=== PATIENT | male | born 1985 | race Caucasian/White ===

== ENCOUNTER 2022-03-16 13:06 | Emergency (ER) | payer OTHER, SELFPAY ==
--- NOTE | 2022-03-16 13:08 | ECG_ITS ---
Test Reason : AFIB Blood Pressure : / mmHG Vent. Rate : 087 BPM Atrial Rate : 087 BPM P-R Int : 152 ms QRS Dur : 078 ms QT Int : 362 ms P-R-T Axes : 025 019 009 degrees QTc Int : 435 ms Normal sinus rhythm Normal ECG When compared with ECG of 03-JUN-2019 13:03, Sinus rhythm has replaced Atrial fibrillation Referred By: Generic ED Physician Electronically Signed By:TREY GARCIA MD
== END 2022-03-16 14:19 | disposition left against medical advice (07) ==
PROVIDERS: Emergency Provider Emergency Medicine; PCP Internal Medicine
DX: I48.91 Unspecified atrial fibrillation (principal)
CPT/HCPCS: 93005; 99282; 99283